=== PATIENT | female | born 1945 | race Caucasian/White ===

== ENCOUNTER 2021-06-08 07:35 | Day surgery (SDC) | payer MEDICARE, OTHER ==
[~2021-06-08] VITALS: Ht 162.6 cm; Wt 81.5 kg
[2021-06-08 08:34] VITALS: BP 159/90; PULSE 58; TEMP 97
--- NOTE | 2021-06-08 08:50 | NUR ---
The patient ambulated back to [facility] independently using a steady gait and appeared to tolerate the activity well. The patient appears alert and oriented at this time. Vital signs obtained. Consent signed. 20G IV started in right wrist with one stick, LR infusing without difficulty. Heart Reg. Lungs clear. Bowel sounds audible. Call light is within reach. Family brought back to be at her bedside. Warm blanket provided. The patient denies any further needs at this time. Will continue to monitor the patient.
[2021-06-08] MEDS ORDERED: SINGULAIR 110 MG/TAB PO (08:53)
[2021-06-08] MEDS ORDERED: REGLAN 5MG T5 MG/TAB PO (08:55)
[2021-06-08] MEDS ORDERED: PREDNISONE20 MG PO (08:55)
[2021-06-08] MEDS ORDERED: NEURONTIN300 MG/CAP PO (08:55)
[2021-06-08] MEDS ORDERED: NEURONTIN100 MG/CAP PO (08:56)
[2021-06-08] MEDS ORDERED: PROTONIX 40MG T40 MG PO (08:57)
[2021-06-08] MEDS ORDERED: LIPITOR20 MG PO (08:57)
[2021-06-08] MEDS ORDERED: COZAAR 50MG50 MG/TAB PO (08:58)
[2021-06-08] MEDS ORDERED: CYMBALTA 60MG60 MG PO (08:58)
[2021-06-08 10:39] VITALS: BP 151/62; PULSE 59; TEMP 97.4
--- NOTE | 2021-06-08 10:39 | NUR ---
The patient arrived back to [facility] from the operating room at this time. The patient appears alert and oriented and denies any pain or nausea at this time. Post operative vital signs were started at this time. Family at bedside. Incision to right denominational appears without redness or edema with skin glue intact. Call light is within reach. The patient agrees to try some water at this time. Will continue to monitor the patient.
[2021-06-08 10:54] VITALS: BP 154/63; PULSE 57
--- NOTE | 2021-06-08 10:55 | NUR ---
The patient appears to be tolerating the water well. The patient denies wanting anything further to eat or drink at this time. The patient's family remains at her bedside. The patient denies any pain or nausea at this time. Will continue to monitor the patient.
[2021-06-08 11:09] VITALS: BP 166/75; PULSE 56
--- NOTE | 2021-06-08 11:10 | NUR ---
The patient has finished her water and appeared to tolerate it well. The patient voices a desire to be discharged home.
--- NOTE | 2021-06-08 11:20 | NUR ---
Discharge instructions were reviewed with the and her family at this time. They both verbalized understanding and have no questions for the nurse at this time. The patient's IV to her right wrist was removed and a pressure dressing was applied to the site. The nurse instructed the patient to get dressed and notify the staff when she is ready to be escorted out.
--- NOTE | 2021-06-08 11:30 | NUR ---
The patient was escorted out via wheelchair to a private vehicle by ZAK Hernandez. The patient's belongings and discharge paperwork were sent with her. The patient's family is present to drive her home.
== END 2021-06-08 11:30 | disposition home or self-care (01) ==
LOC: SDCO 07:35
DX: R51.9 Headache, unspecified (principal); I10 Essential (primary) hypertension; E78.5 Hyperlipidemia, unspecified; K21.9 Gastro-esophageal reflux disease without esophagitis; Z90.49 Acquired absence of other specified parts of digestive tract; Z90.710 Acquired absence of both cervix and uterus; Z90.89 Acquired absence of other organs; Z79.899 Other long term (current) drug therapy
CPT/HCPCS: J0690; J1100; J1885; J2405; J2704; J7120